=== PATIENT | male | born 1950 | race Caucasian/White ===

== ENCOUNTER 2018-05-22 22:46 | Emergency (ER) | payer BC ==
[~2018-05-22] VITALS: Ht 172.7 cm; Wt 81.4 kg
[2018-05-22] MEDS ORDERED: ASPIRINCHW 81MG PO (22:58)
[2018-05-22] MEDS ORDERED: NAPROSYN500 MG PO (22:58)
[2018-05-22] MEDS ORDERED: WELLBUTRIN SR150 MG PO (22:58)
[2018-05-22] MEDS ORDERED: VYVANSE20 MG PO (22:59)
[2018-05-22] MEDS ORDERED: BUPRENORPHIN8 MG SL (23:00)
[2018-05-22] MEDS ORDERED: CELEBREX100 M1 PO (23:25)
[2018-05-22 23:35] VITALS: BP 132/96
== END 2018-05-22 23:35 | disposition home or self-care (01) | DRG 556 ==
LOC: ED 22:46
DX: M79.89 Other specified soft tissue disorders (principal); E78.00 Pure hypercholesterolemia, unspecified; F32.9 Major depressive disorder, single episode, unspecified; I25.2 Old myocardial infarction